=== PATIENT | male | born 1940 | race Caucasian/White ===

== ENCOUNTER → 2023-04-25 | Day surgery (SDC) | payer MEDICARE, OTHER ==
[~2023-04-25] MED LIST: LIDOCAINE 1% INJ 10MG/ML (20 ML MDV) ONE
[2023-04-25] MEDS: SODIUM CHLORIDE 0.9% 1,000 ML IV SCH (13:17)
[2023-04-25 13:27] VITALS: BP 179/82; PULSE 66; RESP 16; TEMP 97.7
[2023-04-25 13:29] LABS: Glucose,Whole Blood 108 mg/dL (70-110)
[2023-04-25] MEDS: LIDOCAINE 1% INJ 10MG/ML (30 ML VIAL-PF) SQ ONE (14:48)
--- NOTE | 2023-04-25 14:57 | P.PCN ---
Description of Procedure: Procedure: Insertion of Linq loop recorder Indication: Recurrent cryptogenic stroke CONSENT:I have discussed the risks, benefits and alternative therapies for the above-mentioned procedure. The patient has indicated understanding and acceptance of the risks and procedures discussed. PROCEDURE: Patient was brought to the catheterization lab in a fasting state. Patient was prepped and draped in the usual fashion. 1% lidocaine was used to anesthetize the area of the left third intercostal space. Using the loop recorder incision device, a small 0.5 cm incision was made in the left 3rd intercostal space. Next the Linq loop recorder was deployed in the 3rd intercostal space subcutaneously using the insertion tool. Thresholds were checked and were excellent at 0.25V. Next the incision was closed using Dermabond. Steristrips were placed over the incision and the procedure was completed. The patient tolerated the procedure well. The patient was transported to the post cath holding area in stable condition. Linq loop recorder serial number: [id number]
== END ==
LOC: CATHEP 12:33
PROVIDERS: ATTEND Internal Medicine
DX: I67.9 Cerebrovascular disease, unspecified (principal); E78.5 Hyperlipidemia, unspecified; I10 Essential (primary) hypertension; E03.9 Hypothyroidism, unspecified; Z79.890 Hormone replacement therapy; Z79.899 Other long term (current) drug therapy
CPT/HCPCS: 33285; C1764; J0690; J2001